=== PATIENT | female | born 1990 | race Caucasian/White ===

== ENCOUNTER 2016-11-07 22:10 | Emergency (ER) | payer MEDICAID, OTHER ==
[~2016-11-07] VITALS: Ht 160 cm; Wt 114.5 kg
[~2016-11-07 22:10] MED LIST: ALBU18HF INHALATION; ALBU2.5V3 NEB; ALBU8.5H3; AZIT250T94 PO; CIPR500T4 PO; HYDR-3498 PO; IBUP-1542 PO; PRED20TA PO
[2016-11-07 23:40] VITALS: Ht 160 cm; Wt 114.5 kg
[2016-11-08] MEDS ORDERED: LEVALBUTEROL (NEB) 1.25 MG/0.5 ML AMP INH STA ×2 (02:15→04:08)
[2016-11-08] MEDS ORDERED: IPRATROPIUM (NEB) 0.5 MG/2.5 ML AMP NEB STA (02:15)
[2016-11-08] MEDS ORDERED: METHYLPREDNISOLONE 125 MG INJ IM STA (02:15)
--- NOTE | 2016-11-08 02:27 | ERD ---
ER Documentation Chief Complaint Date/Time DATE: 11/08/16 TIME: 02:25 Chief Complaint CP x 1 wk, cough with brown/green sputum x 2 days, hx of asthma. HPI 26-year-old female presents here in emergency department for complaints of cough chest pain and wheezing for one week. Patient has been coughing w/ greenish sputum for the last 2 days. Patient does not cough up any blood. Patient has episodes of wheezing on and off. Patient has history of asthma. Patient uses her inhaler with mild relief. Patient denies any fever or chills. Patient denies any palpitations or irregular heartbeat. Patient denies any dizziness. ROS All systems reviewed and are negative except as per history of present illness. Medications Home Meds Active Scripts Albuterol Sulfate* (Albuterol Sulfate* Neb) 0.083%-3 Ml Neb, 2.5 MG NEB Q4 Y for SHORTNESS OF BREATH, #30 EA Prov:ANNA WRIGHT NP 11/08/16 Ibuprofen* (Motrin*) 600 Mg Tab, 600 MG PO Q6H Y for PAIN AND OR ELEVATED TEMP, #30 TAB Prov:ANNA WRIGHT NP 11/08/16 Cetirizine Hcl* (Zyrtec*) 10 Mg Capsule, 10 MG PO DAILY, #30 TAB.CHEW Prov:ANNA WRIGHT NP 11/08/16 Guaifenesin-Codeine Phosphate* (Guaifenesin* AC Cough Syrup) 473 Ml Liquid, 10 ML PO Q4H Y for COUGH, #120 ML Prov:ANNA WRIGHT NP 11/08/16 Prednisone* (Prednisone*) 50 Mg Tablet, 50 MG PO DAILY for 5 Days, TAB Prov:ANNA WRIGHT NP 11/08/16 Albuterol Sulfate* (Proair HFA*) 8.5 Gm Hfa.aer.ad, 2 PUFF INH Q4H Y for WHEEZING AND SOB, #1 INHALER Prov:ANNA WRIGHT NP 11/08/16 Azithromycin* (Zithromax*) 250 Mg Tablet, 250 MG PO .JUAN DIRECTED, #6 TAB TAKE 500 MG (2 TABS) THE FIRST DAY THEN 250 MG (1 TAB) DAYS 2-5 Prov:JUAN R COE MD 09/08/16 Albuterol Sulfate* (Albuterol Sulfate* Neb) 0.083%-3 Ml Neb, 2.5 MG NEB Q4 Y for SHORTNESS OF BREATH, #30 EA Prov:JUAN R COE MD 09/08/16 Albuterol Sulfate* (Ventolin HFA*) 18 Gm Hfa.aer.ad, 2 PUFF INHALATION Q4H, #1 INHALER 2 Refills Prov:JUAN R COE MD 09/08/16 Prednisone* (Prednisone*) 20 Mg Tab, 40 MG PO DAILY for 4 Days, TAB Start September 09, 2016 Prov:JUAN R COE MD 09/08/16 Hydrocodone Bit-Acetaminophen* ([place]*) 5-325 Mg Tab, 1 TAB PO Q6 Y for PAIN, # 7 TAB Prov:YAQUELIN GARCIA PA-C 03/08/15 Ibuprofen* (Motrin*) 600 Mg Tab, 600 MG PO Q6, #14 TAB Prov:YAQUELIN GARCIA PA-C 03/08/15 Ciprofloxacin Hcl* (Ciprofloxacin Hcl*) 500 Mg Tablet, 500 MG PO BID for 7 Days , TAB Prov:YAQUELIN GARCIA PA-C 03/08/15 Reported Medications Albuterol Sulfate* (Proair HFA*) 8.5 Gm Hfa.aer.ad 02/08/11 Allergies Allergies: Coded Allergies: No Known Allergies (Verified Allergy, Mild, 03/08/15) PMhx/Soc History of Surgery: No Anesthesia Reaction: No Hx Neurological Disorder: No Hx Respiratory Disorders: Yes (ASTHMA) Hx Cardiac Disorders: No Hx Psychiatric Problems: No Hx Miscellaneous Medical Probl: No Hx Alcohol Use: Yes (ASTHMA) Hx Substance Use: Yes (MARIJUANA) Hx Tobacco Use: No (1) FmHx Family History: No coronary disease, No diabetes, No other Physical Exam Vitals Vital Signs Date Time Temp Pulse Resp B/P Pulse Ox O2 Delivery O2 Flow Rate FiO2 11/08/16 04:15 115 20 94 21 11/08/16 02:46 106 20 93 21 11/07/16 23:40 99.0 105 20 116/66 95 Physical Exam GENERAL: The patient is well developed and appropriate for usual state of health, in no apparent distress. CHEST: Clear to auscultation bilaterally. There are no rales, wheezes or rhonchi. HEART: Regular rate and rhythm. No murmurs, clicks, rubs or gallops. No S3 or S4. ABDOMEN: Soft, nontender and nondistended. Good bowel sounds. No rebound or guarding. No gross peritonitis. No gross organomegaly or masses. No Cheek sign or McBurney point tenderness. BACK: No midline or flank tenderness. EXTREMITIES: Equal pulses bilaterally. There is no peripheral clubbing, cyanosis or edema. No focal swelling or erythema. Full range of motion. Grossly neurovascularly intact. NEURO: Alert and oriented. Cranial nerves 2-12 intact. Motor strength in all 4 extremities with 5/5 strength. Sensation grossly intact. Normal speech and gait. SKIN: There is no apparent rash or petechia. The skin is warm and dry. HEMATOLOGIC AND LYMPHATIC: There is no evidence of excessive bruising or lymphedema. No gross cervical, axillary, or inguinal lymphadenopathy. Results 24 hrs Current Medications Medications (Trade) Dose Ordered Sig/Junior Route PRN Reason Start Time Stop Time Status Last Admin Dose Admin Ipratropium [place] (Atrovent 0.02% (Neb)) 0.5 mg ONCE STAT NEB 11/08/16 02:15 11/08/16 02:17 DC 11/08/16 02:46 Levalbuterol (Xopenex Neb) 5 mg ONCE STAT INH 11/08/16 02:15 11/08/16 02:17 DC 11/08/16 02:46 Methylprednisolone Sodium Succinate (Solu-Medrol) 125 mg ONCE STAT IM 11/08/16 02:15 11/08/16 02:17 DC 11/08/16 02:42 Levalbuterol (Xopenex Neb) 5 mg ONCE STAT INH 11/08/16 04:08 11/08/16 04:10 DC 11/08/16 04:15 Ondansetron HCl (Zofran Odt) 4 mg ONCE STAT ODT 11/08/16 04:19 11/08/16 04:20 DC 11/08/16 04:23 Breathing treatment of Xopenex and Atrovent Solu-Medrol was given here in emergency department, after treatment, patient's lungs sounds are clear and patient's oxygenation is better. Patient verbalized feeling much better. EKG was done, read by me and is normal sinus rhythm at a rate of 98, normal axis , there is no ST changes or changes in the EKG that indicates any cardiac emergencies at this time. Patient's EKG was also reviewed by Dr. Pretty. Impression: no acute findings on EKG PROCEDURE: XR Chest. CLINICAL INDICATION: Asthma exacerbation TECHNIQUE: Single frontal chest x-ray. COMPARISON: None. FINDINGS: There is minimal prominence of the lung interstitium and peribronchial thickening consistent with history of asthma. There is minimal linear vertically oriented density in the left lower lung lobe behind the which could represent atelectasis. Heart size is within normal limits. No pneumothorax is seen. IMPRESSION: Minimal prominence of the lung interstitium and peribronchial thickening consistent with history of asthma. There is minimal linear vertically oriented density in the left lower lung lobe behind the which could represent atelectasis. RPTAT: HJES .Leopoldo Delaney MD, MD Date Time Electronically viewed and signed by .Leoopldo Delaney MD, MD on 11/08/2016 02:41 .S/ CC: ANNA WRIGHT POISER Procedures/MDM Medical Decision Making: Patient symptoms are most likely consistent with acute bronchitis with acute asthma exacerbation, which viral in origin. There is low suspicion for Pneumonia at this time since patients lungs sounds are clear, patient O2 saturation is normal and patient doesnt show any respiratory distress. Patients chest xray doesnt show infiltrates or any other cardiopulmonary emergencies at this time. There is low suspicion for other cardiopulmonary emergencies at this time such as CHF, Pulmonary Embolism, Pneumothorax, Aortic Aneurysm or any other cardiopulmonary emergencies at this time. There is low suspicion for sepsis. Patient appears well and is hemodynamically stable. She does not have any fever. EKG does not show any changes in indicated any cardiac emergencies at this time. Disposition: Home. Condition: Stable Prescriptions: Albuterol, prednisone, Zyrtec, guaifenesin with codeine, ibuprofen Instructions: Patient is advised to take medications as prescribed. Patient is advised to rest. Patient advised to increase fluid intake, do humidifier at home and if possible, do salt water gargles. Patient is advised that if symptoms are worse, shortness of breath, uncontrolled fever, stridor, vomiting, worst signs and symptoms to return to emergency department immediately. Otherwise, patient is advised to follow up with primary doctor in 5-7 days. Departure Diagnosis: Primary Impression: Asthma with acute exacerbation Asthma severity: unspecified severity Qualified Code: J45.901 - Asthma with acute exacerbation, unspecified asthma severity Additional Impression: Acute bronchitis Bronchitis organism: unspecified organism Qualified Code: J20.9 - Acute bronchitis, unspecified organism Condition: Stable Patient Instructions: Bronchitis With Wheezing (Adult) ANNA WRIGHT NP Nov 08, 2016 02:27
--- NOTE | 2016-11-08 02:41 | RADRPT ---
PROCEDURE: XR Chest. CLINICAL INDICATION: Asthma exacerbation TECHNIQUE: Single frontal chest x-ray. COMPARISON: None. FINDINGS: There is minimal prominence of the lung interstitium and peribronchial thickening consistent with h istory of asthma. There is minimal linear vertically oriented density in the left lower lung lobe b ehind the which could represent atelectasis. Heart size is within normal limits. No pneumothorax is seen. IMPRESSION: Minimal prominence of the lung interstitium and peribronchial thickening consistent with history of asthma. There is minimal linear vertically oriented density in the left lower lung lobe behind the which could represent atelectasis. RPTAT: HJES .Leopoldo Delaney MD, MD Date Time Electronically viewed and signed by .Leopoldo Delaney MD, MD on 11/08/2016 02:41 .S/
[2016-11-08] MEDS ORDERED: CETI10CA PO (03:26)
[2016-11-08] MEDS ORDERED: ALBU8.5H3 INH (03:26)
[2016-11-08] MEDS ORDERED: GUAI473L22 PO (03:26)
[2016-11-08] MEDS ORDERED: IBUP-1542 PO (03:26)
[2016-11-08] MEDS ORDERED: PRED50TA PO (03:26)
[2016-11-08] MEDS ORDERED: ONDANSETRON (ODT) 4 MG TAB ODT STA (04:19)
[2016-11-08 05:10] VITALS: BP 128/80; PULSE 102; RESP 20; TEMP 98.9
[2016-11-08] MEDS ORDERED: ALBU2.5V3 NEB (05:30)
== END 2016-11-08 06:05 | disposition home or self-care (01) ==
LOC: FTE 22:10
DX: J45.901 Unspecified asthma with (acute) exacerbation (principal); J20.9 Acute bronchitis, unspecified; F17.210 Nicotine dependence, cigarettes, uncomplicated
CPT/HCPCS: 71010; 93005; 94644; 94645; 96372; J2930; Z7502; Z7610

== ENCOUNTER → 2019-01-04 | Emergency (ER) | payer MEDICAID, OTHER ==
[~2019-01-04] VITALS: Ht 162.6 cm; Wt 111.2 kg
[~2019-01-04] MED LIST changes: -ALBU8.5H3; +ALBU8.5H8; +ALBU8.5H8 INH; +AZIT250T PO; -AZIT250T94 PO; +CETI10CA PO; +DIPH25CA6 PO; +GUAI473L22 PO; +PRED50TA PO
[2019-01-04 11:15] VITALS: BP 146/75; PULSE 77; RESP 18; Ht 162.6 cm; Wt 111.2 kg
--- NOTE | 2019-01-04 11:52 | ERD ---
ER Documentation Chief Complaint Chief Complaint sinus pain x1yr getting worse HPI 28-year-old female past medical history of mild asthma who presents with complaint of sinus congestion for the past year. Describes feeling of always having nasal congestion but denies any rhinorrhea. Has on and off upper respiratory allergic type symptoms but not having any currently. Has had sinus type headaches off and on but not currently having headaches. Has used sinus drops as well as daily use of Afrin for the past 6 months. Patient states she does not have a PMD has not seen a doctor in well over a year. Has history of asthma but ran out of her nebulizer several months ago. Has no past history of being intubated has not been hospitalized for any asthma exacerbations in the past. Instructed patient she may need additional workup not offered in the emergency setting. She explained to patient that she will need PMD follow-up and specialist referral for continued management of her symptoms. Time of examination patient is nontoxic-appearing with stable triage vital signs. ROS All systems reviewed and are negative except as per history of present illness. Medications Home Meds Active Scripts Diphenhydramine Hcl (Benadryl) 25 Mg Cap, 25 MG PO Q8 for 7 Days, CAP Prov:RORO BAÑUELOS PA-C 01/04/19 Albuterol Sulfate* (Albuterol Sulfate* Neb) 0.083%-3 Ml Neb, 2.5 MG NEB Q4 PRN for SHORTNESS OF BREATH, #30 EA Prov:ANNA WRIGHT NP 11/08/16 Ibuprofen* (Motrin*) 600 Mg Tab, 600 MG PO Q6H PRN for PAIN AND OR ELEVATED TEMP, #30 TAB Prov:ANNA WRIGHT NP 11/08/16 Cetirizine Hcl* (Zyrtec*) 10 Mg Capsule, 10 MG PO DAILY, #30 TAB.CHEW Prov:ANNA WRIGHT NP 11/08/16 Guaifenesin-Codeine Phosphate* (Guaifenesin* AC Cough Syrup) 473 Ml Liquid, 10 ML PO Q4H PRN for COUGH, #120 ML Prov:ANNA WRIGHT NP 11/08/16 Prednisone* (Prednisone*) 50 Mg Tablet, 50 MG PO DAILY for 5 Days, TAB Prov:ANNA WRIGHT NP 11/08/16 Albuterol Sulfate* (Proair HFA*) 8.5 Gm Hfa.aer.ad, 2 PUFF INH Q4H PRN for WHEEZING AND SOB, #1 INHALER Prov:ANNA WRIGHT NP 11/08/16 Azithromycin* (Zithromax*) 250 Mg Tablet, 250 MG PO .ZPACK DIRECTED, #6 TAB TAKE 500 MG (2 TABS) THE FIRST DAY THEN 250 MG (1 TAB) DAYS 2-5 Prov:JUAN R COE MD 09/08/16 Albuterol Sulfate* (Albuterol Sulfate* Neb) 0.083%-3 Ml Neb, 2.5 MG NEB Q4 PRN for SHORTNESS OF BREATH, #30 EA Prov:JUAN R COE MD 09/08/16 Albuterol Sulfate* (Ventolin HFA*) 18 Gm Hfa.aer.ad, 2 PUFF INHALATION Q4H, #1 INHALER 2 Refills Prov:JUAN R COE MD 09/08/16 Prednisone* (Prednisone*) 20 Mg Tab, 40 MG PO DAILY for 4 Days, TAB Start September 09, 2016 Prov:JUAN R COE MD 09/08/16 Hydrocodone Bit-Acetaminophen* ([place]*) 5-325 Mg Tab, 1 TAB PO Q6 PRN for PAIN, #7 TAB Prov:YAQUELIN GARCIA PA-C 03/08/15 Ibuprofen* (Motrin*) 600 Mg Tab, 600 MG PO Q6, #14 TAB Prov:YAQUELIN GARCIA PA-C 03/08/15 Ciprofloxacin Hcl* (Ciprofloxacin Hcl*) 500 Mg Tablet, 500 MG PO BID for 7 Days, TAB Prov:YAQUELIN GARCIA PA-C 03/08/15 Reported Medications Albuterol Sulfate* (Proair HFA*) 8.5 Gm Hfa.aer.ad 02/08/11 Allergies Allergies: Coded Allergies: No Known Allergies (Verified Allergy, Mild, 03/08/15) PMhx/Soc History of Surgery: No Anesthesia Reaction: No Hx Neurological Disorder: No Hx Respiratory Disorders: Yes (ASTHMA) Hx Cardiac Disorders: No Hx Psychiatric Problems: No Hx Miscellaneous Medical Probl: No Hx Alcohol Use: Yes (OCC) Hx Substance Use: Yes (MARIJUANA) Hx Tobacco Use: No Physical Exam Vitals Vital Signs Date Temp Pulse Resp B/P (MAP) Pulse Ox O2 O2 Flow FiO2 Time Delivery Rate 01/04/19 97.5 77 18 146/75 99 11:15 (98) Physical Exam I have reviewed the triage vital signs. Const: Well nourished, well developed, appears stated age Eyes: PERRL, no conjunctival injection HENT: NCAT, Neck supple without meningismus, no sinus tenderness on palp CV: RRR, Warm, well-perfused extremities RESP: CTAB, Unlabored respiratory effort GI: soft, non-tender, non-distended, no masses MSK: No gross deformities appreciated Skin: Warm, dry. No rashes Neuro: grossly non focal Psych: Appropriate mood and affect. Procedures/MDM 28-year-old female with past medical history of asthma who presents with 1 year complaint of sinus congestion. No red flag symptoms that would indicate emergent cause of her symptoms. She likely needs close PMD and referral to ENT for further evaluation. She has no signs or symptoms to indicate active infection warranting treatment. He has no fevers or URI type symptoms and her exam is unremarkable. Plan: Refill asthma medications PMD follow up, info for referral Luis Miguel[employer] Assistant to stop afrin use DISPOSITION PLAN: We discussed follow up with the patient's primary care doctor within 24 to 48 hours. Patient counseled regarding my diagnostic impression and care plan. Prior to discharge all questions answered. Pt agrees with treatment plan and understands strict return precautions. Precautionary instructions provided including instructions to return to the ER if not improving or for any worsening or changing symptoms or concerns. Departure Condition: Stable Patient Instructions: Chronic Sinusitis RORO BAÑUELOS PA-C Jan 04, 2019 11:52
== END | disposition home or self-care (01) ==
LOC: FTE 11:00
DX: R09.81 Nasal congestion (principal); J45.909 Unspecified asthma, uncomplicated
CPT/HCPCS: 99283

== ENCOUNTER 2019-02-01 11:02 | Emergency (ER) | payer OTHER ==
[~2019-02-01] VITALS: Ht 162.6 cm; Wt 81.0 kg
[2019-02-01 11:04] VITALS: Ht 162.6 cm; Wt 81.0 kg
[2019-02-01] MEDS ORDERED: CEPH-443 PO (12:45)
--- NOTE | 2019-02-01 12:55 | ERD ---
ER Documentation Chief Complaint Chief Complaint pt bib self with c/o "bump to left lower leg for a few days" HPI 28-year-old female with no reported past medical surgical history, history of allergies, who presents with complaint of bump to left inner lower leg just above her ankle. She otherwise denies recent trauma to site such as bug or animal bite, recent fall. There is noticed bump about a week ago has had some surrounding redness but no significant tenderness. Had no issues with ambulation. She otherwise denies fevers, chills, nausea, vomiting, abdominal p ain or any other concerning symptoms. States she saw her PMD several weeks ago and had an unremarkable exam and work-up, no elevation in blood glucose but with some mild anemia, normal cholesterol despite the patient's obesity. ROS All systems reviewed and are negative except as per history of present illness. Medications Home Meds Active Scripts Cephalexin* (Keflex*) 500 Mg Capsule, 500 MG PO QID for 7 Days, CAP Prov:JEUDINE,GETHO PA-C 02/01/19 Albuterol Sulfate* (Albuterol Sulfate* Neb) 0.083%-3 Ml Neb, 2.5 MG NEB Q4 PRN for SHORTNESS OF BREATH, #30 EA Prov:JEUDINE,GETHO PA-C 01/04/19 Cetirizine Hcl* (Zyrtec*) 10 Mg Capsule, 10 MG PO DAILY for 30 Days, #30 T AB.CHEW Prov:JEUDINE,GETHO PA-C 01/04/19 Diphenhydramine Hcl (Benadryl) 25 Mg Cap, 25 MG PO Q8 for 7 Days, CAP Prov:JEUDINE,GETHO PA-C 01/04/19 Albuterol Sulfate* (Albuterol Sulfate* Neb) 0.083%-3 Ml Neb, 2.5 MG NEB Q4 PRN for SHORTNESS OF BREATH, #30 EA Prov:ANNA WRIGHT MAIL HANDLERS SUPERVISOR 11/08/16 Ibuprofen* (Motrin*) 600 Mg Tab, 600 MG PO Q6H PRN for PAIN AND OR ELEVATED TEMP, #30 TAB Prov:ANNA WRIGHT. MAIL HANDLERS SUPERVISOR 11/08/16 Cetirizine Hcl* (Zyrtec*) 10 Mg Capsule, 10 MG PO DAILY, #30 TAB.CHEW Prov:ANNA WRIGHT NP 11/08/16 Guaifenesin-Codeine Phosphate* (Guaifenesin* AC Cough Syrup) 473 Ml Liquid, 10 ML PO Q4H PRN for COUGH, #120 ML Prov:ANNA WRIGHT NP 11/08/16 Prednisone* (Prednisone*) 50 Mg Tablet, 50 MG PO DAILY for 5 Days, TAB Prov:ANNA WRIGHT NP 11/08/16 Albuterol Sulfate* (Proair HFA*) 8.5 Gm Hfa.aer.ad, 2 PUFF INH Q4H PRN for WHEEZING AND SOB, #1 INHALER Prov:ANNA WRIGHT NP 11/08/16 Azithromycin* (Zithromax*) 250 Mg Tablet, 250 MG PO .ZPACK DIRECTED, #6 TAB TAKE 500 MG (2 TABS) THE FIRST DAY THEN 250 MG (1 TAB) DAYS 2-5 Prov:JUAN R COE MD 09/08/16 Albuterol Sulfate* (Albuterol Sulfate* Neb) 0.083%-3 Ml Neb, 2.5 MG NEB Q4 PRN for SHORTNESS OF BREATH, #30 EA Prov:JUAN R COE MD 09/08/16 Albuterol Sulfate* (Ventolin HFA*) 18 Gm Hfa.aer.ad, 2 PUFF INHALATION Q4H, #1 INHALER 2 Refills Prov:JUAN R COE MD 09/08/16 Prednisone* (Prednisone*) 20 Mg Tab, 40 MG PO DAILY for 4 Days, TAB Start September 09, 2016 Prov:JUAN R COE MD 09/08/16 Hydrocodone Bit-Acetaminophen* ([place]*) 5-325 Mg Tab, 1 TAB PO Q6 PRN for PAIN, #7 TAB Prov:YAQUELIN GARCIA PA-C 03/08/15 Ibuprofen* (Motrin*) 600 Mg Tab, 600 MG PO Q6, #14 TAB Prov:YAQUELIN GARCIA PA-C 03/08/15 Ciprofloxacin Hcl* (Ciprofloxacin Hcl*) 500 Mg Tablet, 500 MG PO BID for 7 Days, TAB Prov:YAQUELIN GARCIA PA-C 03/08/15 Reported Medications Albuterol Sulfate* (Proair HFA*) 8.5 Gm Hfa.aer.ad 02/08/11 Allergies Allergies: Coded Allergies: No Known Allergies (Verified Allergy, Mild, 03/08/15) PMhx/Soc History of Surgery: No Anesthesia Reaction: No Hx Neurological Disorder: No Hx Respiratory Disorders: Yes (ASTHMA) Hx Cardiac Disorders: No Hx Psychiatric Problems: No Hx Miscellaneous Medical Probl: No Hx Alcohol Use: Yes (OCC) Hx Substance Use: Yes (MARIJUANA) Hx Tobacco Use: No Smoking Status: Current some day smoker FmHx Family History: No diabetes, No coronary disease, No other Physical Exam Vitals Vital Signs Date Temp Pulse Resp B/P (MAP) Pulse Ox O2 O2 Flow FiO2 Time Delivery Rate 02/01/19 98.3 87 18 117/63 98 11:04 (81) Physical Exam Const: No acute distress Head: Atraumatic Eyes: Normal Conjunctiva ENT: Normal External Ears, Nose and Mouth. Neck: Full range of motion. No meningismus. Resp: Clear to auscultation bilaterally Cardio: Regular rate and rhythm, no murmurs Abd: Soft, non tender, non distended. Normal bowel sounds Skin: No petechiae or rashes Back: No midline or flank tenderness Ext: Left medial aspect of left lower extremity with 2 x 3 cm approximate lump, soft but no fluctuance, mild surrounding erythema, no open wounds or lesions noted Neur: Awake and alert Psych: Normal Mood and Affect Procedures/MDM 28-year-old female who presents with complaint of lump to the medial aspect of left lower extremity just above ankle. Unclear etiology of finding. They represent lipoma. Patient does not exhibit concerning signs symptoms such as fever, chills, significant pain to site. She does have some area of redness. For this reason will prescribe a course of antibiotic in case this is early cellulitic changes. Patient advised only to take antibiotics if symptoms do not improve in 2 to 4 days and with advisement of her PMD. I advised patient to follow-up with her PMD regarding her complaint. I have low suspicion for any other process requiring emergent evaluation and care. DISPOSITION PLAN: We discussed follow up with the patient's primary care doctor within 24 to 48 hours. Patient counseled regarding my diagnostic impression and care plan. Prior to discharge all questions answered. Pt agrees with treatment plan and understands strict return precautions. Precautionary instructions provided including instructions to return to the ER if not improving or for any worsening or changing symptoms or concerns. Disclaimer: Inadvertent spelling and grammatical errors are likely due to EHR/dictation software use and do not reflect on the overall quality of patient care. Also, please note that the electronic time recorded on this note does not necessarily reflect the actual time of the patient encounter. Departure Diagnosis: Primary Impression: Cellulitis Additional Impression: Lipoma Condition: Stable Patient Instructions: Cellulitis, Lipoma Referrals: [facility] YOU HAVE RECEIVED A MEDICAL SCREENING EXAM AND THE RESULTS INDICATE THAT YOU DO NOT HAVE A CONDITION THAT REQUIRES URGENT TREATMENT IN THE EMERGENCY DEPARTMENT. FURTHER EVALUATION AND TREATMENT OF YOUR CONDITION CAN WAIT UNTIL YOU ARE SEEN IN YOUR DOCTORS OFFICE WITHIN THE NEXT 1-2 DAYS. IT IS YOUR RESPONSIBILITY TO MAKE AN APPOINTMENT FOR FOLOW-UP CARE. IF YOU HAVE A PRIMARY DOCTOR --you should call your primary doctor and schedule an appointment IF YOU DO NOT HAVE A PRIMARY DOCTOR YOU CAN CALL OUR PHYSICIAN REFERRAL HOTLINE AT IF YOU CAN NOT AFFORD TO SEE A PHYSICIAN YOU CAN CHOSE FROM THE FOLLOWING [facility] [address] [facility]. [facility] [address] [facility]. [facility] [address] [facility] [facility] [address] [facility] [place]. [facility] [address] [facility]. [facility]. [address] [place] Additional Instructions: Call your primary care doctor TOMORROW for an appointment during the next 2-3 days.See the doctor sooner or return here if your condition worsens before your appointment time. You have been provided with a prescription for antibiotics. Only take antibiotics if your symptoms do not improve next 3 to 4 days. Please contact your [facility] physician regarding your symptoms. RORO BAÑUELOS PA-C February 01, 2019 12:55
== END 2019-02-01 13:16 | disposition home or self-care (01) ==
LOC: FTE 11:02
DX: L03.116 Cellulitis of left lower limb (principal); D17.24 Benign lipomatous neoplasm of skin and subcutaneous tissue of left leg; J45.909 Unspecified asthma, uncomplicated; F17.210 Nicotine dependence, cigarettes, uncomplicated
CPT/HCPCS: 99283